=== PATIENT | female | born 2000 | race Caucasian/White ===

== ENCOUNTER → 2021-04-23 | Outpatient (CLI) | payer OTHER ==
[~2021-04-23] MED LIST: AUGMENTIN 875-1 EACH PO; KEFLEX CAP 500500 MG PO; LODINE CAP 300300 MG PO; MACROBID 100 M100 MG PO; PEPCID20 MG PO; PRENATAL VITAM1 EAC8 PO; VALTREX1000 MG PO; ZOFRAN ODT 4 MG4 MG PO
== END ==
LOC: GENOP 13:38
DX: Z53.9 Procedure and treatment not carried out, unspecified reason (principal)
CPT/HCPCS: 93005; J7030

== ENCOUNTER 2021-06-27 02:30 | Outpatient (CLI) | payer OTHER | END 2021-06-27 05:12 | disposition home or self-care (01) | LOC: GENOP 02:30 | DX: O47.03 False labor before 37 completed weeks of gestation, third trimester (principal); O99.891 Other specified diseases and conditions complicating pregnancy; O99.353 Diseases of the nervous system complicating pregnancy, third trimester; O23.43 Unspecified infection of urinary tract in pregnancy, third trimester; M54.9 Dorsalgia, unspecified; N39.0 Urinary tract infection, site not specified; Z3A.36 36 weeks gestation of pregnancy | CPT/HCPCS: 81001 ==

== ENCOUNTER 2021-08-04 22:45 | Inpatient (IN) | payer OTHER ==
[~2021-08-04] VITALS: Ht 154.9 cm; Wt 73.5 kg
[2021-08-05 04:30] LABS: HEMOGLOBIN 11.6 gm/dl (12.3-15.3); RED BLOOD COUNT 3.95 M/UL (4.00-5.10); WHITE BLOOD COUNT 14.4 K/UL (4.5-11.0)
[2021-08-05] MEDS ORDERED: IBUPROFEN800 MG PO (08:13)
[2021-08-05] MEDS ORDERED: HEMOCYTE324 MG PO (08:13)
[2021-08-05] MEDS ORDERED: COLACE100 MG PO (08:13)
[2021-08-06 06:53] LABS: HEMOGLOBIN 10.3 gm/dl (12.3-15.3)
== END 2021-08-06 11:37 | disposition home or self-care (01) | DRG 807 ==
LOC: GENOP 22:45 → OB 08-05 03:33
PROVIDERS: Obstetrics & Gynecology; ADMIT Obstetrics & Gynecology
PROC: 10E0XZZ Delivery of Products of Conception, External Approach (ICD-10-PCS; principal; 2021-08-05)
PROC: 3E033VJ Introduction of Other Hormone into Peripheral Vein, Percutaneous Approach (ICD-10-PCS; 2021-08-05)
PROC: 10907ZC Drainage of Amniotic Fluid, Therapeutic from Products of Conception, Via Natural or Artificial Opening (ICD-10-PCS; 2021-08-05)
PROC: 3E0234Z Introduction of Serum, Toxoid and Vaccine into Muscle, Percutaneous Approach (ICD-10-PCS; 2021-08-05)
PROC: 4A1HXCZ Monitoring of Products of Conception, Cardiac Rate, External Approach (ICD-10-PCS; 2021-08-05)
DX: O80 Encounter for full-term uncomplicated delivery (principal); Z20.822 Contact with and (suspected) exposure to COVID-19; Z37.0 Single live birth; Z86.69 Personal history of other diseases of the nervous system and sense organs; Z87.440 Personal history of urinary (tract) infections; Z3A.38 38 weeks gestation of pregnancy; Z83.3 Family history of diabetes mellitus; Z82.49 Family history of ischemic heart disease and other diseases of the circulatory system; Z82.5 Family history of asthma and other chronic lower respiratory diseases; Z23 Encounter for immunization
CPT/HCPCS: 36415; 59025; 80307; 81001; 83518; 85014; 85018; 85025; 87086; 90471; 90715; 96365; J0595; J0696; J2210; J2405; J2590; U0002